=== PATIENT | male | born 1970 | race Caucasian/White ===

== ENCOUNTER 2023-05-21 08:31 | Inpatient (IN) | payer OTHER, SELFPAY ==
[2023-05-21] VITALS (81 sets, daily range): BP systolic 115–155; BP diastolic 65–105; PULSE 61–197; RESP 10–100; TEMP 36.5–37.1; O2SAT 90–100
--- NOTE | 2023-05-21 08:30 | RT.EKG_ITS ---
APPROVED REPORT Exam: Resting ECG Reason for Exam: Chest Pain Patient Location: E HR:192 bpm ECG Measurements Heart Rate 192 AXIS IA 118 P 75 QRSd 133 QRS -19 QT 292 T 153 QTc 523 Conclusion Wide-QRS tachycardia...V-rate>(220-age), QRSd>120 Left bundle branch block...QRSd>120, broad/notched R vtach
--- NOTE | 2023-05-21 08:45 | RT.EKG_ITS ---
APPROVED REPORT Exam: Resting ECG Reason for Exam: Chest Pain Patient Location: E HR:77 bpm ECG Measurements Heart Rate 77 AXIS W[place] 151 P 64 QRSd 93 QRS 70 QT 356 T 49 QTc 400 Conclusion Sinus rhythm...normal P axis, V-rate 60- 99 Atrial premature complex...SV complex w/ short R-R interval ST depr, consider ischemia, anterolateral lds...ST <-0.10mV, I aVL V2-V6
[2023-05-21 08:57] LABS: Abs Immature Grans 0.02 10^3/uL (0.0-0.06); Absolute Basophil Count 0.05 10^3/uL (0.0-0.2); Absolute Eosinophil Count 0.28 10^3/uL (0.0-0.7); Absolute Lymphocyte Count 2.32 10^3/uL (1.2-3.4); Absolute Neutrophil Count 5.02 10^3/uL (1.2-6.7); Basophils % 0.6; Eosinophils % 3.3; HCT 45.6 % (40.0-50.0); HGB 15.8 g/dL (13.5-17.5); Immature Grans % 0.2; MCH 33.6 pg (27.0-33.0); MCHC 34.6 % (32.0-36.0); MCV 97 fL (80-95); MPV 8.2 fL (8.0-11.0); Monocytes % 10.5; Neutrophils % 58.4; Platelet Count 362 10^3/uL (130-400); RDW-SD 46.4 fL; WBC 8.59 10^3/uL (4.4-10.8)
--- NOTE | 2023-05-21 09:08 | W.ED.GENAD ---
Discharge Plan Disposition Patient Disposition: Admit to [facility] Condition: Serious Discharge Details Chief Complaint: Chest Pain Clinical Impression: Supraventricular tachycardia, Elevated troponin Primary Care Provider: Unknown,Unknown ED Provider: Richie Quach Home Meds and New Rx's Prescriptions: No Action lisinopril 10 mg tablet 10 mg PO DAILY Medical Decision Making 958 --82-year-old male with history of hypertension, here with chest pressure and tachycardia. Patient tachycardic in the 190s, normotensive. EKG was reviewed and interpreted by me: Please report, wide-complex tachycardia concerning for SVT with aberrancy versus V. tach. No old EKG for comparison. Plan to initiate treatment with procainamide. Just prior to treatment with procainamide, patient had spontaneous resolution of arrhythmia. Repeat EKG reviewed and interpreted by me: Please see report. Patient now in sinus rhythm with ST depressions laterally concerning for ischemia. Initial labs reviewed and troponin normal. Plan to trend. Concern for arrhythmogenic cardiomyopathy. No neck cutter available here at [facility] today. I contacted [facility] [place] to request transfer. Awaiting callback from cardiology. EKGs were sent for review. 1035 --I spoke with the PA on-call at [facility] regarding transfer request. Discussed ED presentation course. EKGs were sent for review. Patient to be accepted by Dr. Diaz. No immediate bed availability and plan for bed availability tomorrow. She recommends starting aspirin, statin, metoprolol tartrate 12.5 mg twice daily and obtain echocardiogram if available. They do not recommend anticoagulation at this time. 1145 --delta troponin at [address] elevated[address] I spoke Dr[address] Abrams, on-call hospitalist, discussed ED presentation and course, he will admit the patient. Plan to touch base with [facility] cardiology regarding elevated troponin. Chest x-ray reviewed and interpreted by radiology: No acute pulmonary findings on this single AP portable view of the chest. 1159 --I spoke with on-call cardiology at [facility], provided update regarding troponin, they do recommend initiating heparin at this time with bolus and infusion. Lab Data Lab results reviewed: Yes I reviewed the patient's lab results. Labs: Laboratory Tests Range/Units 05/21/23 05/21/23 08:45 10:45 WBC (4.4-10.8) 10^3/uL 8.59 RBC (4.36-5.78) 10^6/uL 4.70 Hgb (13.5-17.5) g/dL 15.8 Hct (40.0-50.0) % 45.6 MCV (80-95) fL 97 H MCH (27.0-33.0) pg 33.6 H MCHC (32.0-36.0) % 34.6 RDW (11.8-14.1) % 13.0 Plt Count (130-400) 10^3/uL 362 MPV (8.0-11.0) fL 8.2 Immature Gran % 0.2 Neutrophils % 58.4 Lymphocytes % 27.0 Monocytes % 10.5 Eosinophils % 3.3 Basophils % 0.6 Nucleated RBC % (0.0-0.3) % 0.0 Absolute Neutrophils (1.2-6.7) 10^3/uL 5.02 Absolute Lymphocytes (1.2-3.4) 10^3/uL 2.32 Absolute Monocytes (0.1-0.8) 10^3/uL 0.90 H Absolute Eosinophils (0.0-0.7) 10^3/uL 0.28 Absolute Basophils (0.0-0.2) 10^3/uL 0.05 Sodium (136-145) mmol/L 141 Potassium (3.5-5.1) mmol/L 4.1 Chloride (98-107) mmol/L 104 Carbon Dioxide (21.0-32.0) mmol/L 26.9 Anion Gap (3-11) mmol/L 10.1 BUN (7-18) mg/dL 10 Creatinine (0.70-1.30) mg/dL 1.2 Est GFR (CKD-EPI 2020) (mL/min/1.73m2) 71.86 Glucose (74-106) mg/dL 110 H Calcium (8.5-10.1) mg/dL 9.1 Magnesium (1.8-2.4) mg/dL 2.3 Total Bilirubin (0.2-1.0) mg/dL 0.3 AST (15-37) U/L 24 ALT (16-63) U/L 47 Alkaline Phosphatase (46-116) U/L 97 Troponin I (<or=60) ng/L < 50 296 H* Total Protein (6.4-8.2) g/dL 7.8 Albumin (3.4-5.0) g/dL 3.8 TSH (0.36-3.74) uIU/mL 3.09 HPI General Mode of arrival: ambulatory. Date/Time Provider Initiated Documentation: 05/21/23 08:42. Limitations to Documentation: no limitations. Information obtained by: patient. HPI Narrative: 52-year-old male presents with chief complaint of chest pain. Pain described as a pressure that is been present for the past hour. Pain was sudden onset after playing with his dog. He had associated feeling of racing heart. Patient notes similar episodes that occur about 1-4 times per month and lasts approximately 5 minutes over the past 1 and half years. He has never had an episode this intense or long. No associated shortness of breath or leg swelling. No family history of sudden or known cardiomyopathy. Related Data Home Medications Medication Instructions Recorded Confirmed lisinopril 10 mg tablet 10 mg PO DAILY 05/21/23 05/21/23 Allergies Allergy/AdvReac Type Severity Reaction Status Date / Time No Known Allergies Allergy Unverified 05/21/23 08:50 General Stated Complaint: Chest Pain YOLI: 2 Review of Systems All systems reviewed & are unremarkable except as noted in HPI and below Constitutional Constitutional: Denies fever(s) Cardiovascular Cardiovascular: Reports as per HPI PFSH All Active Problems (Updated 05/21/23 @ 12:04 by Richie Quach MD) Elevated troponin (Acute) Supraventricular tachycardia (Chronic) Social History Smoking/Tobacco Use Status: Current every day Tobacco Type: cigarettes Smoking risk assessment performed?: Yes Alcohol Intake: current Alcohol Intake frequency: a few times a week Drug use: Never Substance use type: does not use Housing: house Do you feel safe at home: Yes Do you feel safe in your relationship?: Yes Exam Const General: cooperative and no acute distress HENMT Mouth: moist mucous membranes Eyes Conjunctivae: normal conjunctivae Sclera: normal sclerae Resp Auscultation: clear to auscultation bilaterally, no rales, no rhonchi and no wheezes Cardio Rate: tachycardic Rhythm: regular rhythm GI Palpation: soft, not firm, no guarding, no masses, not rigid and nontender Skin General skin exam: no rashes or lesions noted Neuro General: patient alert, patient awake, patient oriented x3 and tone normal Extrem General: no calf tenderness and no edema Psych Appearance: grossly normal Mental Status: mental status grossly normal Speech and Movement: speech and movement normal Course Vital Signs Vital signs: Vital Signs Temperature 36.9 C 05/21/23 08:35 Pulse 190 H 05/21/23 08:35 Respiratory Rate 18 05/21/23 08:35 Blood Pressure 124/65 05/21/23 08:35 Pulse Oximetry 100 05/21/23 08:35 Temperature 36.9 C 05/21/23 08:35 Pulse 185 H 05/21/23 08:37 Pulse 197 H 05/21/23 08:41 Respiratory Rate 15 05/21/23 08:41 Respiratory Effort Normal 05/21/23 08:40 Respiratory Depth Normal 05/21/23 08:40 Respiratory Pattern Normal 05/21/23 08:40 Blood Pressure 124/65 05/21/23 08:37 Blood Pressure Mean 80 05/21/23 08:37 Pulse Oximetry 100 05/21/23 08:35 Oxygen Delivery Method Room Air 05/21/23 08:35 Oxygen Flow Rate 0 05/21/23 08:35 Lab/Test Results Lab/Test Results: Laboratory Tests Range/Units 05/21/23 08:45 WBC (4.4-10.8) 10^3/uL 8.59 RBC (4.36-5.78) 10^6/uL 4.70 Hgb (13.5-17.5) g/dL 15.8 Hct (40.0-50.0) % 45.6 MCV (80-95) fL 97 H MCH (27.0-33.0) pg 33.6 H MCHC (32.0-36.0) % 34.6 RDW (11.8-14.1) % 13.0 Plt Count (130-400) 10^3/uL 362 MPV (8.0-11.0) fL 8.2 Immature Gran % 0.2 Neutrophils % 58.4 Lymphocytes % 27.0 Monocytes % 10.5 Eosinophils % 3.3 Basophils % 0.6 Nucleated RBC % (0.0-0.3) % 0.0 Absolute Neutrophils (1.2-6.7) 10^3/uL 5.02 Absolute Lymphocytes (1.2-3.4) 10^3/uL 2.32 Absolute Monocytes (0.1-0.8) 10^3/uL 0.90 H Absolute Eosinophils (0.0-0.7) 10^3/uL 0.28 Absolute Basophils (0.0-0.2) 10^3/uL 0.05 Critical Care Time Critical Care Time Critical Care Time: Yes Total Critical Care Time: 50 Attestation: I spent greater than 50 minutes addressing this patient's immediate life threats. Please see MDM section of note. This time was spent engaged in work directly related to the patient's care, exclusive of separate procedures, and failure to initiate these interventions would have likely resulted in clinically significant or life threatening deterioration in the patient's condition. PAWSS Have you Been Recently Intoxicated or Drunk Within the Last 30 days?: No Have you Ever Experienced Previous Episodes of Alcohol Withdrawal?: No Have you ever Experienced Withdrawal Seizures?: No Have you ever Experienced Delirium Tremens(DT)s?: No Have you ever undergone Alcohol Rehabilitation Treatment (i.e, inpt ot outpatient treatment programs)?: No Have you ever Experienced Blackouts?: No Have you ever Combined Alcohol with other Downers within the last 90 days?: No Have you ever Combined Alcohol with any other Substance of Abuse during the last 90 days?: No Positive Blood Alcohol level on Presentation? [PCS.BAL]: No Evidence of Increased Autonomic Activity (i.e. HR>120, tremor, sweating, agitation, nausea)?: No Result: 0
[2023-05-21 09:20] LABS: ALT 47 U/L (16-63); AST 24 U/L (15-37); Albumin 3.8 g/dL (3.4-5.0); Alkaline Phosphatase 97 U/L (46-116); Anion Gap 10.1 mmol/L (3-11); BUN 10 mg/dL (7-18); Bilirubin, Total 0.3 mg/dL (0.2-1.0); CO2 26.9 mmol/L (21.0-32.0); CREATININE 1.2 mg/dL (0.70-1.30); Calcium 9.1 mg/dL (8.5-10.1); Chloride 104 mmol/L (98-107); Estimated GFR 71.86 (mL/min/1.73m2); Glucose 110 mg/dL (74-106); Magnesium 2.3 mg/dL (1.8-2.4); Potassium 4.1 mmol/L (3.5-5.1); Sodium 141 mmol/L (136-145); TSH (W/Ref FT4) 3.09 uIU/mL (0.36-3.74); Total Protein 7.8 g/dL (6.4-8.2); Troponin I < 50 ng/L (<or=60)
--- NOTE | 2023-05-21 10:30 | DI.RAD_ITS ---
Exam(s) XR PORTABLE CHEST AP EXAM: XR PORTABLE CHEST AP CLINICAL HISTORY: chest pain. TECHNIQUE: 2D digital imaging was performed. COMPARISON: No exams were available for comparison FINDINGS: Single AP portable view. Chest pad in place. Heart size is upper normal. The mediastinum is not widened. Lungs are clear. No infiltrates nor obvious pleural effusions. IMPRESSION: No acute pulmonary findings on this single AP portable view of the chest. DATA REPOSITORY: RADIATION DOSE DELIVERED:
[2023-05-21] MEDS: Metoprolol 12.5 MG TAB PO ×3 (11:16→19:23)
[2023-05-21 11:21] LABS: Troponin I 296 ng/L (<or=60)
[2023-05-21 12:15] LABS: Source Nasal/Nares
[2023-05-21 12:55] LABS: COVID-19 PCR Negative (Negative)
[2023-05-21 12:59] LABS: PTT Activated 26.5 sec (23.6-32.8)
--- NOTE | 2023-05-21 13:16 | W.PC.ACHO ---
Registration Status: REG ER Primary Language: Preferred Language: ED Information & Data Chief Complaint Chest Pain 05/21/23 10:01 Triage Note pt having chest tightness 05/21/23 08:35 for last hour, -SOB, numbness in left arm Most Recent Vital Signs Temperature 36.9 C 05/21/23 08:35 Pulse 70 05/21/23 12:31 Pulse 71 05/21/23 12:40 Respiratory Rate 16 05/21/23 12:40 Respiratory Effort Normal 05/21/23 08:40 Respiratory Depth Normal 05/21/23 08:40 Respiratory Pattern Normal 05/21/23 08:40 Blood Pressure 137/70 05/21/23 12:31 Blood Pressure Mean 90 05/21/23 12:31 Pulse Oximetry 100 05/21/23 08:35 Oxygen Delivery Method Room Air 05/21/23 08:35 Oxygen Flow Rate 0 05/21/23 08:35 Allergies No Known Allergies Allergy (Unverified 05/21/23 08:50) Precautions Isolation Standard precaution 05/21/23 08:39 Active Medications Generic Name Dose Route Start Last Admin Trade Name Anthonyq PRN Reason Stop Dose Admin Heparin Sodium (Porcine) 25,000 units in 250 mls @ 10 mls/hr 05/21/23 12:00 05/21/23 12:29 IV 1,000 units/hr INFUSION MARIA 10 mls/hr Administration Protocol 1,000 UNITS/HR Metoprolol Tartrate 12.5 mg 05/21/23 20:00 05/21/23 11:16 Metoprolol 12.5 Mg Tab PO 12.5 mg BID MARIA Administration IV IV Catheter Type [Right Peripheral IV Antecubital] IV Catheter Type [Left Peripheral IV Antecubital] IV Catheter Gauge [Right 18 Antecubital] IV Catheter Gauge [Left 18 Antecubital] Diet Orders Category Date Time Status DIET [Nothing Per Oral] [DIET] Nutrition 05/21/23 Lunch Active Diagnostics 05/21/23 05/21/23 05/21/23 Range/Units 12:05 10:45 08:45 WBC 8.59 (4.4-10.8) 10^3/uL RBC 4.70 (4.36-5.78) 10^6/uL Hgb 15.8 (13.5-17.5) g/dL Hct 45.6 (40.0-50.0) % MCV 97 H (80-95) fL MCH 33.6 H (27.0-33.0) pg MCHC 34.6 (32.0-36.0) % RDW 13.0 (11.8-14.1) % Plt Count 362 (130-400) 10^3/uL MPV 8.2 (8.0-11.0) fL Immature Gran % 0.2 Neutrophils % 58.4 Lymphocytes % 27.0 Monocytes % 10.5 Eosinophils % 3.3 Basophils % 0.6 Nucleated RBC % 0.0 (0.0-0.3) % Absolute Neutrophils 5.02 (1.2-6.7) 10^3/uL Absolute Lymphocytes 2.32 (1.2-3.4) 10^3/uL Absolute Monocytes 0.90 H (0.1-0.8) 10^3/uL Absolute Eosinophils 0.28 (0.0-0.7) 10^3/uL Absolute Basophils 0.05 (0.0-0.2) 10^3/uL APTT 26.5 (23.6-32.8) sec Sodium 141 (136-145) mmol/L Potassium 4.1 (3.5-5.1) mmol/L Chloride 104 (98-107) mmol/L Carbon Dioxide 26.9 (21.0-32.0) mmol/L Anion Gap 10.1 (3-11) mmol/L BUN 10 (7-18) mg/dL Creatinine 1.2 (0.70-1.30) mg/dL Est GFR (CKD-EPI 2020) 71.86 (mL/min/1.73m2) Glucose 110 H (74-106) mg/dL Calcium 9.1 (8.5-10.1) mg/dL Magnesium 2.3 (1.8-2.4) mg/dL Total Bilirubin 0.3 (0.2-1.0) mg/dL AST 24 (15-37) U/L ALT 47 (16-63) U/L Alkaline Phosphatase 97 (46-116) U/L Troponin I 296 H* < 50 (<or=60) ng/L Total Protein 7.8 (6.4-8.2) g/dL Albumin 3.8 (3.4-5.0) g/dL TSH 3.09 (0.36-3.74) uIU/mL COVID-19 Source Nasal/Nares SARS-CoV-2 (PCR) Negative (Negative) Intake and Output - 24 Hour Total 05/21/23 08:31 thru 05/21/23 08:48 Intake Total 10 Balance 10 Weight 92.986 kg Intake: IV 10 Falls Risk Assessment History of Falls No History 05/21/23 08:41 Contributing Factors No Factors 05/21/23 08:41 Ambulatory Aids Independent 05/21/23 08:41 Tubes/Lines None 05/21/23 08:41 Gait Evaluation No gait disturbance 05/21/23 08:41 Cognition No cognitive impairment 05/21/23 08:41 Fall Total Score 0 05/21/23 08:41 Level of Risk Standard/Low Risk 05/21/23 08:41 Problems (Last Reviewed 05/21/23 @ 09:57 by Richie Quach MD) Elevated troponin (Acute) Supraventricular tachycardia (Chronic) v v v v v v v v v Sending and/or Receiving Nurses: Please use comment section below to note any information pertinent to the patient hand-off not included above. Information / Comments: med rec complete covid negative R AC #18 L AC #18 trops - <50, 296 independent, AAO x3 heparin gtt @ 10ml/hr PTT due at 1830, gtt started at 1230 chest pain on and off for a year; lasted 1 hour + today; HR 190's on admit - self converted to SR [place] [facility] until [place]22 Report received from: FARZANEH Quiles
--- NOTE | 2023-05-21 13:49 | W.PM.HP.N ---
Date of service: 05/21/23 Time of Service: 13:49 Assessment and Plan Assessment and plan (1) Wide-complex tachycardia: Status: Acute Assessment and plan: likely PSVT w/ aberrancy; begin metoprolol, will start on 12.5 mg qid (was ordered BID but d/t shorter half life should be given TID to QID). Start on ASA and statin; check glycohemoglobin A1c, and lipid profile, trend troponin I levels, if dramatic jump or if he has further symptoms then I will call [facility] [place] to try to expedite his transfer. continue heparin. I explained to patient that he will likely need heart cath and d/t his AI, he will need BEREKET. I am sure EP cardiology will perform more extensive workup once CAD has been ruled out. Critical care time spent interviewing and examining the patient, reviewing studies, discussing case with patient's nurse and consulting physicians was 60 minutes (2) Supraventricular tachycardia: Status: Suspected Assessment and plan: as above (3) Elevated troponin: Status: Acute Assessment and plan: type II demand NSTEMI (4) Essential hypertension: Status: Acute Assessment and plan: continue lisinopril History of Present Illness History of Present Illness Chief Complaint: chest tightness, palpitations Narrative: 52-year-old male smoker (one half to three-quarter pack per day x35 years) Essential hypertension controlled with lisinopril who presented to the emergency department with over 1 hour of symptoms of chest tightness and palpitations with a feeling of dyspnea. He states he has been having intermittent symptoms of palpitations with chest tightness, palpitations, and dyspnea that will last 5 to 10 minutes and this has occurred over a dozen times over the past year to year and half. He says that he has been to his PCP and he had been referred to a engineering program manager in [facility] who did an EKG and told him that he is fine. He has never had stress GXT nor any holter. Today his symptoms occurred abruptly without warning and not associated w/ any exertion. On arrival to the ED he was found to be in wide complex tachycardia at [address] Quach was preparing to begin Pronestyl when the patient converted to NSR on his own. Subsequent EGK demonstrated diffuse ST depression most prominent across the anterolateral precordial leads particularly in V3-V6 but also present in I and the inferior leads. Initial troponin I was normal at <50 but 2nd troponin done two hours later was elevated at 296. Dr. Quach called [facility] cardiology with the EKG's and the first troponin reading, they indicated that the patient would be accepted to [facility] cardiology, Dr. Diaz's service but due to bed capacity asked that he be admitted here. They advised beginning metoprolol, aspirin and statin but did not advise heparin but with the rising troponin I, patient has been started on heparin. Patient is currently in NSR and denies any CP or dyspnea. He understands that he will be transferred to [facility] when bed beccomes available. He had an echo done urgently here which I reviewed w/ him, he has normal LV and RV size and fxn but has moderate AI. He says that he had scarlet fever as a child but does not know of any rheumatic fever. Coronary risk factors include: age, smoker, HTN, +/- lipids, but no FH of premature heart disease (mother had atrial fibrillation). Normally he is very active, walks his dog couple miles a day and he works for [employer] at [place], [place] which involves a lot of walking and some climbing. he has no known hx of DM or sleep apnea, but does snore. Review of Systems All systems reviewed & are unremarkable except as noted in HPI and below PFSH All Active Problems (Updated 05/21/23 @ 14:57 by Dawood Abrams MD) Wide-complex tachycardia (Acute) Essential hypertension (Acute) Elevated troponin (Acute) Medical History (Updated 05/21/23 @ 14:57 by Dawood Abrams MD) Left forearm fracture required surgical repair of left forearm from tractor accident Social History Smoking/Tobacco Use Status: Current every day Tobacco Type: cigarettes Smoking risk assessment performed?: Yes Alcohol Intake: current Alcohol Intake frequency: a few times a week Drug use: Never Substance use type: does not use Housing: house Do you feel safe at home: Yes Do you feel safe in your relationship?: Yes Meds Allergies and Home Medications Allergies Allergy/AdvReac Type Severity Reaction Status Date / Time No Known Allergies Allergy Unverified 05/21/23 08:50 Home Medications Medication Instructions Recorded Confirmed Type lisinopril 10 mg tablet 10 mg PO DAILY 05/21/23 05/21/23 History Exam Narrative Exam Narrative: Alert and oriented x4 HEENT: Atraumatic normocephalic, pupils equally round reactive to light and accommodation, extraocular motion intact, oropharynx noninjected without exudate, teeth in good repair Neck: Supple, nontender, without thyromegaly or lymphadenopathy or JVD. Normal carotid pulses Lungs: Clear to auscultation and percussion Heart: Regular rate and rhythm without murmur rub or gallop. Normal apical impulse Abdomen: Nondistended, normal bowel sounds, nontender to palpation or percussion, no organomegaly, no bruits, no palpable masses Genitalia and rectal exam: Deferred Extremities: Normal range of motion with normal strength. No peripheral cyanosis or edema. Normal pulses Neurologic: Cranial nerves II through XII grossly within normal limits. Normal strength and sensation over the face trunk and extremities. Results Labs 05/21/23 08:45 05/21/23 08:45 Labs: Laboratory Results - last 24 hr 05/21/23 05/21/23 05/21/23 08:45 10:45 12:05 WBC 8.59 RBC 4.70 Hgb 15.8 Hct 45.6 MCV 97 H MCH 33.6 H MCHC 34.6 RDW 13.0 Plt Count 362 MPV 8.2 Immature Gran % 0.2 Neutrophils % 58.4 Lymphocytes % 27.0 Monocytes % 10.5 Eosinophils % 3.3 Basophils % 0.6 Nucleated RBC % 0.0 Absolute Neutrophils 5.02 Absolute Lymphocytes 2.32 Absolute Monocytes 0.90 H Absolute Eosinophils 0.28 Absolute Basophils 0.05 APTT 26.5 Sodium 141 Potassium 4.1 Chloride 104 Carbon Dioxide 26.9 Anion Gap 10.1 BUN 10 Creatinine 1.2 Est GFR (CKD-EPI 2020) 71.86 Glucose 110 H Calcium 9.1 Magnesium 2.3 Total Bilirubin 0.3 AST 24 ALT 47 Alkaline Phosphatase 97 Troponin I < 50 296 H* Total Protein 7.8 Albumin 3.8 TSH 3.09 COVID-19 Source Nasal/Nares SARS-CoV-2 (PCR) Negative Last Vital Signs Temp 36.9 C 05/21/23 08:35 Pulse 70 05/21/23 12:31 Resp 16 05/21/23 12:40 BP 137/70 05/21/23 12:31 Pulse Ox 100 05/21/23 08:35 PAWSS Have you Been Recently Intoxicated or Drunk Within the Last 30 days?: No Have you Ever Experienced Previous Episodes of Alcohol Withdrawal?: No Have you ever Experienced Withdrawal Seizures?: No Have you ever Experienced Delirium Tremens(DT)s?: No Have you ever undergone Alcohol Rehabilitation Treatment (i.e, inpt ot outpatient treatment programs)?: No Have you ever Experienced Blackouts?: No Have you ever Combined Alcohol with other Downers within the last 90 days?: No Have you ever Combined Alcohol with any other Substance of Abuse during the last 90 days?: No Positive Blood Alcohol level on Presentation? [PCS.BAL]: No Evidence of Increased Autonomic Activity (i.e. HR>120, tremor, sweating, agitation, nausea)?: No Result: 0 Time Spent Time spent with Patient: 55-74 minutes Time was spent: preparing to see the patient(eg.review tests), obtaining and/or reviewing separately otained hiistory, ordering medications,tests, procedures, referring, communicating with other health clinical care manager, indepentently interpreting results, counseling the patient and care coordination
[2023-05-21 14:34] LABS: Lab Add On Test DONE
[2023-05-21] MEDS: Aspirin 81 MG CHEW 324 MG CH (14:38)
[2023-05-21] MEDS: Normal Saline Flush 10 ML SYR IVP (14:40)
--- NOTE | 2023-05-21 14:45 | RT.EKG_ITS ---
APPROVED REPORT Exam: Resting ECG Reason for Exam: rising troponin I Patient Location: I HR:71 bpm ECG Measurements Heart Rate 71 AXIS NH 167 P 62 QRSd 96 QRS 62 QT 418 T 53 QTc 455 Conclusion Sinus rhythm...normal P axis, V-rate 50- 99 Normal Electrocardiogram
[2023-05-21 14:50] LABS: Hemoglobin A1C 5.8 % (<5.7)
[2023-05-21 14:51] LABS: Troponin I 666 ng/L (<or=60)
[2023-05-21 18:49] LABS: PTT Activated 33.6 sec (23.6-32.8)
[2023-05-21 18:53] LABS: Troponin I 794 ng/L (<or=60)
[2023-05-21] MEDS: Atorvastatin 40 MG TAB 80 MG PO (19:23)
[2023-05-22] VITALS (35 sets, daily range): BP systolic 107–143; BP diastolic 71–130; PULSE 59–96; RESP 10–25; TEMP 36.4–37.1; O2SAT 83–99
[2023-05-22 02:12] LABS: PTT Activated 53.1 sec (23.6-32.8)
[2023-05-22] MEDS: Heparin in 0.45% NaCl 25,000 UNIT/250 ML BAG 13.5 UNIT IV (02:41)
[2023-05-22 08:01] LABS: Calculated LDL 121 mg/dL (<100); Cholesterol 215 mg/dL (<200); HDL Cholesterol 51 mg/dL (40-60); Triglyceride 219 mg/dL (<150)
[2023-05-22 08:06] LABS: Troponin I 534 ng/L (<or=60)
[2023-05-22] MEDS: Metoprolol 12.5 MG TAB PO ×4 (08:35→19:51)
[2023-05-22] MEDS: Aspirin E.C. 81 MG TABEC PO (08:35)
[2023-05-22] MEDS: Lisinopril 10 MG TAB PO (08:35)
[2023-05-22 09:37] LABS: PTT Activated 45.9 sec (23.6-32.8)
--- NOTE | 2023-05-22 10:48 | W.PM.PROGNOT ---
Date of Service Date of service: 05/22/23 Time of Service: 10:48 Assessment and Plan Assessment and plan (1) Wide-complex tachycardia: Status: Acute Assessment and plan: likely PSVT w/ aberrancy; continue metoprolol, aspirin and heparin in light of his elevated troponins, However I still think this is demand ischemia. Awaiting transfer to [facility] to the service of Dr. Hanna for further evaluation. Professional time spent interviewing and examining patient, discussion of goals of care with hospital team (care management, nursing and consulting professionals) was 20 minutes. (2) Supraventricular tachycardia: Status: Suspected Assessment and plan: as above (3) Elevated troponin: Status: Acute Assessment and plan: type II demand NSTEMI continue aspirin metoprolol and atorvastatin (4) Essential hypertension: Status: Acute Assessment and plan: continue lisinopril Subjective Subjective Interval history since last seen: Patient's been asymptomatic since admission. No chest pain no dyspnea no palpitations. No arrhythmias overnight. Rhythm remains normal sinus rhythm. Metoprolol. We are awaiting transfer to [facility] cardiology Dr. Hanna service for evaluation of the patient's wide-complex tachycardia most likely PSVT. Transthoracic echocardiogram also demonstrated moderate aortic insufficiency and is evaluated with a BEREKET. L Exam Narrative Exam Narrative: Vern is alert oriented person place time circumstance no acute distress or discomfort whatsoever. Lungs clear to auscultation Heart is regular rate and rhythm there is a soft grade 2/6 diastolic murmur over the aortic outflow tract radiating down to the left lower sternal border. No thrill or heave Abdomen soft nontender Extremities no cyanosis Objective Last Vital Signs Temp 36.7 C 05/22/23 10:01 Pulse 72 05/22/23 10:01 Resp 16 05/22/23 10:01 BP 131/89 05/22/23 10:01 Pulse Ox 97 05/22/23 10:01 Laboratory Results - last 24 hr 05/21/23 05/21/23 05/21/23 08:45 10:45 12:05 APTT 26.5 Hemoglobin A1c Troponin I 296 H* Triglycerides Total Cholesterol LDL Cholesterol, Calc HDL Cholesterol COVID-19 Source Nasal/Nares SARS-CoV-2 (PCR) Negative Add-On Test Request 05/21/23 05/21/23 05/21/23 14:22 18:26 Unknown APTT 33.6 H Hemoglobin A1c 5.8 H Troponin I 666 H* 794 H* Triglycerides Total Cholesterol LDL Cholesterol, Calc HDL Cholesterol COVID-19 Source SARS-CoV-2 (PCR) Add-On Test Request DONE 05/22/23 05/22/23 05/22/23 01:46 06:55 09:15 APTT 53.1 H 45.9 H Hemoglobin A1c Troponin I 534 H* Triglycerides 219 H Total Cholesterol 215 H LDL Cholesterol, Calc 121 H HDL Cholesterol 51 COVID-19 Source SARS-CoV-2 (PCR) Add-On Test Request PAWSS Have you Been Recently Intoxicated or Drunk Within the Last 30 days?: No Have you Ever Experienced Previous Episodes of Alcohol Withdrawal?: No Have you ever Experienced Withdrawal Seizures?: No Have you ever Experienced Delirium Tremens(DT)s?: No Have you ever undergone Alcohol Rehabilitation Treatment (i.e, inpt ot outpatient treatment programs)?: No Have you ever Experienced Blackouts?: No Have you ever Combined Alcohol with other Downers within the last 90 days?: No Have you ever Combined Alcohol with any other Substance of Abuse during the last 90 days?: No Positive Blood Alcohol level on Presentation? [PCS.BAL]: No Evidence of Increased Autonomic Activity (i.e. HR>120, tremor, sweating, agitation, nausea)?: No Result: 0 Time Spent with Patient Time Spent with Patient: <25 minutes Time was spent: preparing to see the patient(eg.review tests), referring, communicating with other health point of care technician, indepentently interpreting results, counseling the patient and care coordination
--- NOTE | 2023-05-22 12:44 | W.PM.DS.N ---
Date of service: 05/22/23 Time of Service: 12:44 DS: Diagnosis Discharge Diagnosis (1) Wide-complex tachycardia: Status: Acute (2) Supraventricular tachycardia: Status: Suspected (3) Aortic regurgitation: Status: Acute (4) Elevated troponin: Status: Acute (5) Essential hypertension: Status: Acute (6) Hypercholesterolemia: Status: Acute (7) Tobacco abuse: Status: Acute Discharge Plan Disposition Patient Disposition: Transfer-Acute Inpatient Care Specific Acute Inpt Facility: [facility] Condition: Good Discharge Details Reason For Visit: wide complex tachycardia, elevated troponin I Admit Date/Time: 05/21/23 11:50 Admit Provider: Dawood Abrams Attending Provider: Dawood Abrams Primary Care Provider: Unknown,Unknown Hospital Course Hospital Course: 52-year-old male smoker with history of essential hypertension controlled with lisinopril presented emergency department with 1 hour of symptoms of chest tightness and palpitations with dyspnea. He was found to be in a wide-complex tachycardia at 192 bpm w/ LBBB pattern. Patient spontaneously converted to normal sinus rhythm without any medication intervention. Repeat ECG showed diffuse ST depression. Initial troponin was negative at less than 50 but second troponin millicent to 296. [facility] emergency room physician notified [facility] [place]ology who advised initiation of aspirin and heparin and initiation of metoprolol what was probably PSVT. Patient was conditionally accepted for transfer to [facility] to the service of Dr. Marcellus Hanna pending availability of a bed. Patient was admitted to the ICU where he remained hemodynamically stable and did not experience any further WCT nor any chest pain or dyspnea. Troponin I peaked at 794 before declining to 534 by the next day. Glycohemoglobin A1C was checked and found to be minimally elevated at 5.8%. Lipid profile was checked and found to be elevated w/ total cholesterol 215, LDL 121 and triglycerides 219. An echocardiogram was performed on admission which demonstrated normal LV and RV size and function w/ LVEF 55% and no regional wall motion abnormalities. However he was noted to have mild aortic regurgitation which was a new finding. Patient was begun on aspirin 81 mg daily after loading dose of 324 mg and he was treated w/ heparin drip but was not begun on Plavix. Atorvastatin was also begun. Patient was transferred to [facility] cardiology service of Dr. Marcellus Diaz in stable and improved condition. Home Meds and New Rx's Prescriptions: No Action lisinopril 10 mg tablet 10 mg PO DAILY Discharge Instructions Activity:: Activity as Tolerated Equipment/Supplies:: No Equipment Needed Diet:: Low Sodium Discharge Orders Discharge Orders: Discharge Order (Routine); Ordered 05/22/23 Ordered By: Jim Landry Discharge Data Discharge Date/Time-TO BE ENTERED AT DEPARTURE: 05/22/23 22:00 DS: Summary Time Spent with Patient providing and/or coordinating discharge services: Greater than 30 minutes Specific discharge activities: Interview/exam of patient, educating patient and/or family about need for transfer and alternative treatment options, coordination of transfer w/ receiving facility and discussion of case w/ accepting provider(s), completion of transfer orders and discharge summary Status at Discharge Functional status at discharge: independent ambulation Overall status at discharge: patient is back to baseline Mental Status: mental status grossly normal Speech and Movement: speech and movement normal Mood: congruent mood Affect: normal affect Exam Narrative Exam Narrative: Vern is alert oriented person place time circumstance no acute distress or discomfort whatsoever. Lungs clear to auscultation Heart is regular rate and rhythm there is a soft grade 2/6 diastolic murmur over the aortic outflow tract radiating down to the left lower sternal border. No thrill or heave Abdomen soft nontender Extremities no cyanosis Psych Mental Status: mental status grossly normal Speech and Movement: speech and movement normal Mood: congruent mood Affect: normal affect DS: Data Vitals/I&O Vitals and I&O: Vital Signs Temperature 36.6 C 05/22/23 12:01 Temperature Source Temporal Artery Scan 05/22/23 08:02 Pulse 74 05/22/23 12:01 Pulse 75 05/22/23 12:01 Respiratory Rate 10 L 05/22/23 12:01 Respiratory Effort Normal 05/22/23 08:02 Respiratory Depth Normal 05/22/23 08:02 Respiratory Pattern Normal 05/22/23 08:02 Blood Pressure 134/79 05/22/23 12:01 Blood Pressure Mean 95 05/22/23 12:01 Blood Pressure Position Supine 05/22/23 08:02 Pulse Oximetry 97 05/22/23 12:01 Oxygen Delivery Method Room Air 05/22/23 08:02 Oxygen Flow Rate 0 05/22/23 08:02 Pain Level 0 05/22/23 05:46 Intake & Output 05/21/23 05/22/23 05/22/23 23:59 11:59 23:59 Intake Total 140.334 / 150.334 730.167 / 1030.167 300 / 1030.167 Output Total 750 / 750 Balance 140.334 / 150.334 -19.833 / 280.167 300 / 280.167 Weight 88.4 kg Intake: IV 140.334 / 150.334 80.167 / 80.167 Oral 650 / 950 300 / 950 Output: Urine 750 / 750 Other: Urine Color Yellow Urine Appearance Clear Urine Odor Normal Voiding Methods Urinal Data Completed and Pending Labs on day of discharge: Labs from last 24 hours 05/22/23 05/22/23 05/22/23 09:15 06:55 01:46 APTT 45.9 H 53.1 H Hemoglobin A1c Troponin I 534 H* Triglycerides 219 H Total Cholesterol 215 H LDL Cholesterol, Calc 121 H HDL Cholesterol 51 SARS-CoV-2 (PCR) Add-On Test Request 05/21/23 05/21/23 05/21/23 Unknown 18:26 14:22 APTT 33.6 H Hemoglobin A1c 5.8 H Troponin I 794 H* 666 H* Triglycerides Total Cholesterol LDL Cholesterol, Calc HDL Cholesterol SARS-CoV-2 (PCR) Add-On Test Request DONE 05/21/23 05/21/23 12:05 08:45 APTT 26.5 Hemoglobin A1c Troponin I Triglycerides Total Cholesterol LDL Cholesterol, Calc HDL Cholesterol SARS-CoV-2 (PCR) Negative Add-On Test Request [facility] All Active Problems (Updated 05/23/23 @ 00:04 by TY GARCIA) Tobacco abuse (Acute) Hypercholesterolemia (Acute) Aortic regurgitation (Acute) Wide-complex tachycardia (Acute) Essential hypertension (Acute) Elevated troponin (Acute) Medical History Left forearm fracture required surgical repair of left forearm from tractor accident Social History Smoking/Tobacco Use Status: Current every day Tobacco Type: cigarettes Smoking risk assessment performed?: Yes Alcohol Intake: current Alcohol Intake frequency: a few times a week Drug use: Never Substance use type: does not use Housing: house Do you feel safe at home: Yes Do you feel safe in your relationship?: Yes Time Spent with Patient Time Spent with Patient: <45 minutes Time was spent: preparing to see the patient(eg.review tests), referring, communicating with other health out of school hours care worker, indepentently interpreting results, counseling the patient and care coordination
[2023-05-22] MEDS: Heparin in 0.45% NaCl 25,000 UNIT/250 ML BAG 15.5 UNIT IV ×2 (14:21→18:55)
--- NOTE | 2023-05-22 14:47 | CHAPLAIN ---
Vern was sitting up in bed when I visited. He's waiting to be trandfered [place] [facility] [place] more tests. He said his will likely travel there to visit him, once the tests are complete and they have an idea of what's going on. I explained my role and offered support.
[2023-05-22] MEDS: Atorvastatin 40 MG TAB 80 MG PO (19:51)
[2023-05-22 20:48] LABS: PTT Activated 57.4 sec (23.6-32.8)
--- NOTE | 2023-05-23 00:01 | DSE_ITS ---
Date of service: 05/22/23 Time of Service: 22:00 DS: Diagnosis Discharge Diagnosis (1) Wide-complex tachycardia: Status: Acute (2) Supraventricular tachycardia: Status: Suspected (3) Aortic regurgitation: Status: Acute (4) Elevated troponin: Status: Acute (5) Essential hypertension: Status: Acute (6) Hypercholesterolemia: Status: Acute (7) Tobacco abuse: Status: Acute Discharge Plan Disposition Patient Disposition: Transfer-Acute Inpatient Care Specific Acute Inpt Facility: [facility] Condition: Good Discharge Details Reason For Visit: wide complex tachycardia, elevated troponin I Admit Date/Time: 05/21/23 11:50 Admit Provider: Dawood Abrams Attending Provider: Dawood Abrams Primary Care Provider: Unknown,Unknown Hospital Course Hospital Course: 52-year-old male smoker with history of essential hypertension controlled with lisinopril presented emergency department with 1 hour of symptoms of chest tightness and palpitations with dyspnea. He was found to be in a wide-complex tachycardia at 192 bpm w/ LBBB pattern. Patient spontaneously converted to normal sinus rhythm without any medication intervention. Repeat ECG showed diffuse ST depression. Initial troponin was negative at less than 50 but second troponin millicent to 296. [facility] emergency room physician notified [facility] cardiology who advised initiation of aspirin and heparin and initiation of metoprolol what was probably PSVT. Patient was conditionally accepted for transfer to [facility] to the service of Dr. Marcellus Hanna pending availability of a bed. Patient was admitted to the ICU where he remained hemodynamically stable and did not experience any further WCT nor any chest pain or dyspnea. Troponin I peaked at 794 before declining to 534 by the next day. Glycohemoglobin A1C was checked and found to be minimally elevated at 5.8%. Lipid profile was checked and found to be elevated w/ total cholesterol 215, LDL 121 and triglycerides 219. An echocardiogram was performed on admission which demonstrated normal LV and RV size and function w/ LVEF 55% and no regional wall motion abnormalities. However he was noted to have mild aortic regurgitation which was a new finding. Patient was begun on aspirin 81 mg daily after loading dose of 324 mg and he was treated w/ heparin drip but was not begun on Plavix. Atorvastatin was also begun. Patient was transferred to [facility] cardiology service of Dr. Marcellus Diaz in stable and improved condition. Home Meds and New Rx's Prescriptions: No Action lisinopril 10 mg tablet 10 mg PO DAILY Discharge Instructions Activity:: Activity as Tolerated Equipment/Supplies:: No Equipment Needed Diet:: Low Sodium Discharge Orders Discharge Orders: Discharge Order (Routine); Ordered 05/22/23 Ordered By: Jim Landry Discharge Data Discharge Date/Time-TO BE ENTERED AT DEPARTURE: 05/22/23 22:00 DS: Summary Time Spent with Patient providing and/or coordinating discharge services: Greater than 30 minutes Status at Discharge Functional status at discharge: independent ambulation Overall status at discharge: patient is progressing back to baseline Mental Status: mental status grossly normal Speech and Movement: speech and movement normal Mood: congruent mood Affect: normal affect Exam Psych Mental Status: mental status grossly normal Speech and Movement: speech and movement normal Mood: congruent mood Affect: normal affect DS: Data Vitals/I&O Vitals and I&O: Vital Signs Temperature 37 C 05/22/23 19:55 Temperature Source Temporal Artery Scan 05/22/23 19:55 Pulse 74 05/22/23 21:01 Pulse 75 05/22/23 21:01 Respiratory Rate 20 05/22/23 21:01 Respiratory Effort Normal 05/22/23 19:55 Respiratory Depth Normal 05/22/23 19:55 Respiratory Pattern Normal 05/22/23 19:55 Blood Pressure 115/78 05/22/23 21:01 Blood Pressure Mean 90 05/22/23 21:01 Blood Pressure Position Sitting 05/22/23 19:55 Pulse Oximetry 93 05/22/23 21:01 Oxygen Delivery Method Room Air 05/22/23 19:55 Oxygen Flow Rate 0 05/22/23 19:55 Pain Level 0 05/22/23 22:10 Intake & Output 05/22/23 05/22/23 05/23/23 11:59 23:59 11:59 Intake Total 730.167 / 2639.450 1909.283 / 2639.450 Output Total 750 / 3200 2450 / 3200 Balance -19.833 / -560.550 -540.717 / -560.550 Intake: IV 80.167 / 339.450 259.283 / 339.450 Oral 650 / 2300 1650 / 2300 Output: Urine 750 / 3200 2450 / 3200 Other: Urine Color Yellow Yellow Urine Appearance Clear Clear Urine Odor Normal Normal Comment uses urinal Stool Size Large Stool Characteristics Soft Voiding Methods Urinal Urinal Data Completed and Pending Labs on day of discharge: Labs from last 24 hours 05/22/23 05/22/23 05/22/23 20:25 09:15 06:55 APTT 57.4 H 45.9 H Troponin I 534 H* Triglycerides 219 H Total Cholesterol 215 H LDL Cholesterol, Calc 121 H HDL Cholesterol 51 05/22/23 01:46 APTT 53.1 H Troponin I Triglycerides Total Cholesterol LDL Cholesterol, Calc HDL Cholesterol PFSH All Active Problems (Updated 05/23/23 @ 00:04 by TY GARCIA) Tobacco abuse (Acute) Hypercholesterolemia (Acute) Aortic regurgitation (Acute) Wide-complex tachycardia (Acute) Essential hypertension (Acute) Elevated troponin (Acute) Medical History Left forearm fracture required surgical repair of left forearm from tractor accident Social History Smoking/Tobacco Use Status: Current every day Tobacco Type: cigarettes Smoking risk assessment performed?: Yes Alcohol Intake: current Alcohol Intake frequency: a few times a week Drug use: Never Substance use type: does not use Housing: house Do you feel safe at home: Yes Do you feel safe in your relationship?: Yes Time Spent with Patient Time Spent with Patient: 45-69 minutes Time was spent: preparing to see the patient(eg.review tests), obtaining and/or reviewing separately otained hiistory, ordering medications,tests, procedures, referring, communicating with other health manager urgent care, indepentently interpreting results and care coordination
== END 2023-05-22 22:00 | disposition short-term general hospital (02) | DRG 282 ==
LOC: ER 12:04 → ICU 13:22
PROVIDERS: Family Medicine; Physician Assistant; Admitting Provider Internal Medicine; Emergency Provider Student in an Organized Health Care Education/Training Program; Visit Provider Internal Medicine
DX: I47.10 Supraventricular tachycardia, unspecified (principal); I21.A1 Myocardial infarction type 2; I35.1 Nonrheumatic aortic (valve) insufficiency; I10 Essential (primary) hypertension; E78.00 Pure hypercholesterolemia, unspecified; R74.8 Abnormal levels of other serum enzymes; R07.89 Other chest pain; F17.210 Nicotine dependence, cigarettes, uncomplicated; I44.7 Left bundle-branch block, unspecified; R01.1 Cardiac murmur, unspecified
CPT/HCPCS: 00123; 36415; 80053; 80061; 87635; 93005; 96365; 96366; 96367; 99291; 71045; 83036; 83735; 84443; 84484; 85025; 85730; 93010; 93306; 99231; 99239; J3490

== ENCOUNTER 2023-09-03 09:36 | Outpatient (CLI) | payer OTHER, SELFPAY ==
--- NOTE | 2023-09-03 09:30 | RT.EKG_ITS ---
APPROVED REPORT Exam: Resting ECG Reason for Exam: SVT Patient Location: O HR:82 bpm ECG Measurements Heart Rate 82 AXIS WY 158 P 74 QRSd 101 QRS 67 QT 381 T 48 QTc 445 Conclusion Sinus rhythm...normal P axis, V-rate 50- 99 I have reviewed and interpreted ECG and agree with software generated interpretation.
== END 2023-09-03 09:37 | disposition home or self-care (01) ==
LOC: DI.CARD 09:37
PROVIDERS: PCP Family Medicine; Visit Provider Internal Medicine Cardiovascular Disease
DX: I47.10 Supraventricular tachycardia, unspecified (principal)
CPT/HCPCS: 93010

== ENCOUNTER 2024-06-22 09:43 | Emergency (ER) | payer OTHER, SELFPAY ==
[2024-06-22] VITALS (19 sets, daily range): BP systolic 89–154; BP diastolic 61–95; PULSE 83–212; RESP 8–22; TEMP 37; O2SAT 96–99
--- NOTE | 2024-06-22 09:45 | RT.EKG_ITS ---
APPROVED REPORT Exam: Resting ECG Reason for Exam: Tachycardia Patient Location: E HR:174 bpm ECG Measurements Heart Rate 174 AXIS IN 64 P 0 QRSd 82 QRS 75 QT 274 T -62 QTc 467 Conclusion WVT 174
[2024-06-22] MEDS: Adenosine 6 MG/2 ML VIAL IVP ×2 (10:00)
--- NOTE | 2024-06-22 10:00 | ED.GENADUL_ITS ---
Discharge Plan Disposition Patient Disposition: Home Condition: Stable Discharge Details Clinical Impression: SVT (supraventricular tachycardia) Primary Care Provider: [facility] ED Provider: Cody Leigh Home Meds and New Rx's Prescriptions: No Action aspirin [Adult Aspirin Regimen] 81 mg tablet,delayed release (DR/EC) 81 mg PO DAILY metoprolol succinate 25 mg tablet extended release 24 hr 25 mg PO DAILY atorvastatin 40 mg tablet 40 mg PO DAILY albuterol sulfate 90 mcg/actuation HFA aerosol inhaler 2 inh inhalation Q6H PRN lisinopril 10 mg tablet 10 mg PO DAILY Discharge Instructions Instructions: Supraventricular tachycardia (SVT) Additional Instructions: * continue medications as prescribed * keep a log of your blood pressure. you may be able to increase your metoprolol dose if BP is stable. your PCP or vp legal affairs can adjust this HPI General Date/Time Provider Initiated Documentation: 06/22/24 09:54 . Limitations to Documentation: no limitations . Information obtained by: patient . HPI Narrative: 53-year-old gentleman with past medical history of SVT, hypertension presents for evaluation of elevated heart rate. He reports that his heart rate felt elevated this morning and he used his [employer] monitor which read that his heart rate was almost 200. He reports that he otherwise felt fine. He states that he has had this many times before. He has previously had an ablation. He states that he did take his metoprolol this morning as well as his baby aspirin. He denies any chest pain or shortness of breath. Related Data Home Medications ?Medication ?Instructions ?Recorded ?Confirmed lisinopril 10 mg tablet 10 mg PO DAILY 05/21/23 06/22/24 albuterol sulfate 90 mcg/actuation 2 inh inhalation Q6H PRN 06/12/23 06/22/24 aerosol inhaler aspirin 81 mg tablet,delayed 81 mg PO DAILY 06/12/23 06/22/24 release (Adult Aspirin Regimen) atorvastatin 40 mg tablet 40 mg PO DAILY 06/12/23 06/22/24 metoprolol succinate 25 mg 25 mg PO DAILY 06/12/23 06/22/24 tablet,extended release 24 hr Allergies Allergy/AdvReac Type Severity Reaction Status Date / Time No Known Allergies Allergy Verified 06/22/24 09:56 General Stated Complaint: Palpitatns YOLI: 2 Exam Narrative Exam Narrative: Review of Systems: All systems reviewed & are unremarkable except as noted in HPI and below Well-developed, no acute distress NCAT Tachycardic, normal blood pressure Unlabored respiratory effort clear bilaterally no hypoxia Nondistended abdomen Extremities w/o edema no focal neurologic deficits Course Vital Signs Vital signs: Vital Signs Temperature 37.0 C 06/22/24 09:47 Pulse 212 H 06/22/24 09:47 Respiratory Rate 20 06/22/24 09:47 Blood Pressure 154/69 H 06/22/24 09:47 Pulse Oximetry 99 06/22/24 09:47 Temperature 37.0 C 06/22/24 09:47 Pulse 212 H 06/22/24 09:47 Respiratory Rate 20 06/22/24 09:47 Respiratory Effort Normal 06/22/24 09:53 Blood Pressure 154/69 H 06/22/24 09:47 Pulse Oximetry 99 06/22/24 09:47 Pain Level 0 06/22/24 09:47 Medical Decision Making Emergent evaluation of tacky dysrhythmia. Patient does have a history of SVT. He reports several prior cardioversions as well as an ablation. He reports that cardiology told him that he needs a second ablation but he has not been able to have this scheduled yet. He did take his metoprolol this morning. Initial EKG reveals supraventricular tachycardia at a rate of 174. Nonspecific ST segment changes likely secondary to rate. 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 Given his normal blood pressure, chemical cardioversion for this patient's tacky dysrhythmia is appropriate. He was given 6 mg of IV adenosine without change in rate. He was then given 12 mg of adenosine which resulted in resolution of his SVT and returned to sinus rhythm. Repeat EKG reviewed and independently interpreted: Sinus tachycardia 111, no acute ischemic changes. Given the patient's history of this, do not feel additional emergent workup or blood work is indicated. Will monitor to make sure the patient does not return to abnormal heart rhythm. Patient had no recurrence of abnormal heart rhythm and maintained a sinus rhythm. Recommend a blood pressure log so that he can follow-up with his PCP as he may need it at the increased dose of the metoprolol if he continues to have dysrhythmia symptoms. Return precautions advised. Follow-up as needed. Quality:SDOH Health Related Social Needs: No Data to Display PFSH All Active Problems (Updated 06/22/24 @ 10:54 by Cody Leigh MD) SVT (supraventricular tachycardia) (Chronic) Diabetes mellitus, type II (Acute) Tobacco abuse (Acute) Hypercholesterolemia (Acute) Aortic regurgitation (Acute) Wide-complex tachycardia (Acute) Essential hypertension (Acute) Elevated troponin (Acute) Medical History Left forearm fracture required surgical repair of left forearm from tractor accident Social History Smoking/Tobacco Use Status: Former Tobacco Use Smoking risk assessment performed?: Yes Alcohol Intake: current Alcohol Intake frequency: a few times a week Drug use: Never Substance use type: does not use Housing: house Do you feel safe at home: Yes Do you feel safe in your relationship?: Yes
[2024-06-22] MEDS: Adenosine 6 MG/2 ML VIAL 12 MG IVP (10:10)
[2024-06-22] MEDS: Metoprolol CR 25 MG TABCR PO (10:39)
== END 2024-06-22 11:06 | disposition home or self-care (01) ==
LOC: ER 11:08
PROVIDERS: Emergency Provider Emergency Medicine; PCP Family Medicine
DX: I47.10 Supraventricular tachycardia, unspecified (principal)
CPT/HCPCS: 36415; 93005; 96374; 99284; 93010; J0153

== ENCOUNTER 2024-07-21 11:54 | Emergency (ER) | payer OTHER, SELFPAY ==
[2024-07-21] VITALS (22 sets, daily range): BP systolic 100–155; BP diastolic 63–89; PULSE 76–193; RESP 12–26; O2SAT 95–99
--- NOTE | 2024-07-21 11:45 | RT.EKG_ITS ---
APPROVED REPORT Exam: Resting ECG Reason for Exam: svt, low bp Patient Location: E HR:188 bpm ECG Measurements Heart Rate 188 AXIS IN [id number] P 0 QRSd 138 QRS -29 QT 300 T 145 QTc 530 Conclusion Wide-QRS tachycardia, rate 188 V-tach vs. SVT with aberrancy Similar morphology compared to 05/21/2023 EKG
--- NOTE | 2024-07-21 12:00 | RT.EKG_ITS ---
APPROVED REPORT Exam: Resting ECG Reason for Exam: svt Patient Location: E HR:88 bpm ECG Measurements Heart Rate 88 AXIS ND 166 P 70 QRSd 98 QRS 73 QT 359 T 41 QTc 434 Conclusion Sinus rhythm, rate 88 No interval abnormalities No STEMI Compared to priors, wide complex tachycardia has resolved
--- NOTE | 2024-07-21 12:13 | ED.GENADUL_ITS ---
Discharge Plan Disposition Patient Disposition: Home Discharge Details Clinical Impression: Wide-complex tachycardia, Essential hypertension, Hypercholesterolemia, Diabetes mellitus, type II, Transaminitis Primary Care Provider: [facility] ED Provider: Linn Kwon Home Meds and New Rx's Prescriptions: No Action aspirin [Adult Aspirin Regimen] 81 mg tablet,delayed release (DR/EC) 81 mg PO DAILY metoprolol succinate 25 mg tablet extended release 24 hr 25 mg PO DAILY atorvastatin 40 mg tablet 40 mg PO DAILY lisinopril 10 mg tablet 10 mg PO DAILY Discharge Instructions Instructions: Supraventricular tachycardia (SVT) Additional Instructions: You were seen in the emergency department today for evaluation of tachycardia, and had vagal maneuvers performed that successfully converted you back into a sinus rhythm. Your laboratory studies were reassuring, though we did note a small elevation in your liver enzymes that we will need to be rechecked by your primary care provider at your next visit. It is a for you to go home and continue all of your medications as prescribed, and please schedule a follow-up appointment with your propellant assembler to discuss this visit and next steps in management of your tachycardia. Thank you for allowing us to be part of your care. Discharge Data Discharge Date/Time-TO BE ENTERED AT DEPARTURE: 07/21/24 13:45 HPI General Mode of arrival: ambulatory . Date/Time Provider Initiated Documentation: 07/21/24 11:55 . Limitations to Documentation: no limitations . Information obtained by: patient, family and old records reviewed . HPI Narrative: HPI: This is a 53-year-old male patient with a past medical history significant for SVT, hypertension, diabetes, presenting for evaluation of SVT. The patient reports that he has had frequent episodes of SVT, is followed by cardiology at [facility]. He states that these episodes started back in 2022, he underwent ablation that was unfortunately unsuccessful, and has not yet been able to sched ule a repeat procedure. He takes metoprolol, 25 mg extended release daily, states that this morning he took another half of a pill when he felt himself go into SVT. He was at rest when this occurred, approximately 1 hour prior to arrival. He states that it is associated with a racing sensation and a bubble sensation of discomfort in the center of his chest. He has no associated nausea, vomiting, shortness of breath, and states that he has not had any recent changes in his health or medications. He does not consume an excessive amount of caffeine, states that he quit smoking after this condition occurred, and has otherwise been in his normal state of health. The patient was prompted to seek care today because he noted that his blood pressure went low in the outpatient environment, to 90 systolic. He states that he is getting these episodes approximately weekly. Exam: Gen: Awake and alert, in no apparent distress HEENT: Non-icteric sclera Neck: Supple Lungs: No apparent respiratory distress, normal respiratory effort. CV: Appears well perfused, heart with tachycardic rate, thready pulses, regular rhythm Abdomen: Non-distended MSK: Moves 4 extremities without apparent limitation in ROM. No calf swelling or peripheral edema Skin: Visualized skin without rashes, cyanosis. Neuro: Normal Gait, no obvious focal deficits or facial asymmetry. Speaks in full, clear sentences. Psych: Appropriate for situation. MDM: This is a 53-year-old male patient presenting for evaluation of SVT. My differential includes but is not limited to arrhythmia including his baseline SVT, no history of WPW, no history of atrial fibrillation and the regular rate is less consistent with this dysrhythmia. Considered ventricular dysrhythmias including ventricular tachycardia. I considered metabolic and electrolyte derangements, dehydration, medication effect. Considered hyperthyroidism. Reassuringly, the patient's blood pressure is stable, and we obtained an EKG which showed a wide-complex tachycardia, with a rate of 188. We attempted vagal maneuvers x 1, with successful conversion to normal sinus rhythm. Blood pressure maintained normal throughout this procedure and afterwards, and the patient had a complete resolution of his chest pain. We will obtain laboratory studies to include CBC, CMP, magnesium, TSH. Though there is evidence to suggest that troponins do not need to be obtained in the setting of a tachydysrhythmia exacerbation, given that this patient has had a wide-complex rhythm concerning for ventricular tachycardia, and has had recent EKGs showing a narrow complex SVT, it is reasonable to rule out ACS with troponin at this time. ED Course: I independently interpreted the laboratory studies, which show no significant leukocytosis, anemia, or thrombocytopenia. The chemistry panel is without evidence of electrolyte abnormality, kidney dysfunction. Mild transaminitis appreciated, new for this patient compared to priors, for which she will need to have outpatient laboratory studies performed by his PCP at his next visit. Initial troponin was not elevated, and 1 hour delta is without significant change, making cardiac ischemia highly unlikely. I monitored the patient on telemetry and he remained in the sinus rhythm and remained asymptomatic with normal vital signs. He is desiring of discharge home and will follow-up with his propellant assembler, which I feel is very reasonable course of action. At this time, the patient has had a full medical evaluation and is safe for discharge to home. They are hemodynamically stable, ambulatory, and tolerating PO. They are understanding of the follow-up plan and return precautions. They left our facility without incident. Linn Kwon MD Related Data Home Medications ?Medication ?Instructions ?Recorded ?Confirmed lisinopril 10 mg tablet 10 mg PO DAILY 05/21/23 07/21/24 aspirin 81 mg tablet,delayed 81 mg PO DAILY 06/12/23 07/21/24 release (Adult Aspirin Regimen) atorvastatin 40 mg tablet 40 mg PO DAILY 06/12/23 07/21/24 metoprolol succinate 25 mg 25 mg PO DAILY 06/12/23 07/21/24 tablet,extended release 24 hr Allergies Allergy/AdvReac Type Severity Reaction Status Date / Time No Known Allergies Allergy Verified 07/21/24 12:00 General Stated Complaint: Chest Pain YOLI: 2 Course Vital Signs Vital signs: Vital Signs Pulse 191 H 07/21/24 11:57 Respiratory Rate 26 H 07/21/24 11:57 Blood Pressure 155/89 H 07/21/24 11:57 Pulse Oximetry 99 07/21/24 11:57 Pulse 96 H 07/21/24 12:05 Pulse 99 H 07/21/24 12:05 Respiratory Rate 15 07/21/24 12:05 Respiratory Effort Normal, Non-Labored 07/21/24 12:01 Respiratory Depth Normal 07/21/24 12:01 Respiratory Pattern Normal 07/21/24 12:01 Blood Pressure 113/75 07/21/24 12:05 Blood Pressure Mean 88 07/21/24 12:05 Blood Pressure Position Sitting 07/21/24 11:57 Pulse Oximetry 98 07/21/24 12:05 Oxygen Delivery Method Room Air 07/21/24 11:57 Oxygen Flow Rate 0 07/21/24 11:57 Pain Level 2 07/21/24 12:01 Medical Decision Making Quality:SDOH Health Related Social Needs: No Data to Display PFSH All Active Problems (Updated 07/21/24 @ 13:39 by Linn Kwon MD) Transaminitis (Acute) SVT (supraventricular tachycardia) (Chronic) Diabetes mellitus, type II (Acute) Tobacco abuse (Acute) Hypercholesterolemia (Acute) Aortic regurgitation (Acute) Wide-complex tachycardia (Acute) Essential hypertension (Acute) Elevated troponin (Acute) Medical History Left forearm fracture required surgical repair of left forearm from tractor accident Social History Smoking/Tobacco Use Status: Former Tobacco Use Smoking risk assessment performed?: Yes Alcohol Intake: current Alcohol Intake frequency: a few times a week Drug use: Never Substance use type: does not use Housing: house Do you feel safe at home: Yes Do you feel safe in your relationship?: Yes
--- NOTE | 2024-07-21 12:14 | NUR.NOTE ---
Nursing Note:Pt arrived in SVT 200s, Dr. Kwon to bedside. Vagal maneuvers successful with return to NSR 90s. EKGs done pre and post intervention. Pt denies chest pain.
[2024-07-21 12:32] LABS: HCT 44.4 % (40.0-50.0); MCH 31.6 pg (27.0-33.0); MCHC 33.8 % (32.0-36.0); MCV 94 fL (80-95); MPV 8.4 fL (8.0-11.0); Neutrophils % 52.1 %; Platelet Count 272 10^3/uL (130-400); RBC 4.75 10^6/uL (4.36-5.78); RDW 12.7 % (11.8-14.1); WBC 5.43 10^3/uL (4.4-10.8)
[2024-07-21 12:33] LABS: Absolute Basophil Count 0.03 10^3/uL (0.0-0.2); Absolute Eosinophil Count 0.02 10^3/uL (0.0-0.7); Absolute Lymphocyte Count 1.55 10^3/uL (1.2-3.4); Absolute Monocyte Count 0.99 10^3/uL (0.1-0.8); Absolute Neutrophil Count 2.83 10^3/uL (1.2-6.7); Basophils % 0.6 %; Eosinophils % 0.4 %; Immature Grans % 0.2 %; Lymphocytes % 28.5 %; Monocytes % 18.2 %
[2024-07-21 12:34] LABS: Diff Comment Diff Reviewed; RBC Morphology Normal
--- NOTE | 2024-07-21 12:39 | NUR.NOTE ---
Nursing Note: First round of labs drawn with IV start hemolyzed per lab, redrawn by Tracey MOY
[2024-07-21 13:18] LABS: Albumin 3.6 g/dL (3.4-5.0); Alkaline Phosphatase 80 U/L (46-116); BUN 12 mg/dL (7-18); Bilirubin, Total 0.44 mg/dL (0.2-1.0); CREATININE 1.4 mg/dL (0.70-1.30); Estimated GFR 59.36 (mL/min/1.73m2); Glucose 102 mg/dL (74-106); Sodium 137 mmol/L (136-145); Total Protein 7.6 g/dL (6.4-8.2); Troponin I 26 ng/L (<or=76)
[2024-07-21 13:19] LABS: ALT 78 U/L (16-63); AST 55 U/L (15-37); Anion Gap 11.2 mmol/L (3-11); CO2 25.8 mmol/L (21.0-32.0); Chloride 100 mmol/L (98-107); Magnesium 1.8 mg/dL (1.8-2.4); TSH (W/Ref FT4) 2.63 uIU/mL (0.36-3.74)
[2024-07-21 13:57] LABS: Troponin I 33 ng/L (<or=76)
== END 2024-07-21 13:45 | disposition home or self-care (01) ==
LOC: ER 13:48
PROVIDERS: Emergency Provider Emergency Medicine; PCP Family Medicine
DX: R00.0 Tachycardia, unspecified (principal); I10 Essential (primary) hypertension; R74.01 Elevation of levels of liver transaminase levels; E11.9 Type 2 diabetes mellitus without complications; E78.00 Pure hypercholesterolemia, unspecified
CPT/HCPCS: 80053; 93005; 99284; 83735; 84443; 84484; 85025; 93010

== ENCOUNTER 2024-07-23 22:11 | Emergency (ER) | payer OTHER, SELFPAY ==
[2024-07-23] VITALS (20 sets, daily range): BP systolic 115–135; BP diastolic 73–85; PULSE 91–212; RESP 22; TEMP 36.8; O2SAT 94–98
--- NOTE | 2024-07-23 22:00 | RT.EKG_ITS ---
APPROVED REPORT Exam: Resting ECG Reason for Exam: rapid heart rate Patient Location: E HR:178 bpm ECG Measurements Heart Rate 178 AXIS DE 116 P 178 QRSd 85 QRS 84 QT 263 T -69 QTc 454 Conclusion Supraventricular tachycardia...V-rate>(220-age), QRSd<120 Repolarization abnormality, prob rate related...ST dep, T neg, tachycardia appropriate intervals no ST segment or T wave abnormalitites to suggest occlusive MT
--- NOTE | 2024-07-23 22:14 | ED.GENADUL_ITS ---
Discharge Plan Disposition Patient Disposition: Home Condition: Good Discharge Details Clinical Impression: SVT (supraventricular tachycardia), Hypokalemia Primary Care Provider: [facility] ED Provider: Muriel Price Home Meds and New Rx's Prescriptions: New diltiazem HCl [DILT-XR] 120 mg capsule,ext.rel 24h degradable 120 mg PO DAILY Qty: 30 0RF Continued aspirin [Adult Aspirin Regimen] 81 mg tablet,delayed release (DR/EC) 81 mg PO DAILY atorvastatin 40 mg tablet 40 mg PO DAILY lisinopril 10 mg tablet 10 mg PO DAILY Discontinued metoprolol succinate 25 mg tablet extended release 24 hr 25 mg PO DAILY Discharge Instructions Instructions: Supraventricular tachycardia (SVT) Additional Instructions: STOP taking the metoprolol. START taking the diltiazem extended release 120mg once day; take your first home dose on 07/25/24. [facility] cardiology should call you to schedule an appointment. If you do not hear from them early next week, please call them. Call your primary care doctor on Friday to schedule an appointment to followup on your visit here. Your potassium was slightly low; they may want to recheck this. Return to the emergency department if your symptoms return, or for new symptoms including chest pain, shortness of breath, feeling like your are going to pass out, or if you have any other concerns. Stand Alone Forms: Work Release Referrals: [facility] [Primary Care Provider] - Discharge Data Discharge Date/Time-TO BE ENTERED AT DEPARTURE: 07/24/24 00:15 HPI General Mode of arrival: ambulatory . Date/Time Provider Initiated Documentation: 07/23/24 22:12 . Limitations to Documentation: no limitations . Information obtained by: patient and old records reviewed (cardiology note 09/23/23: ) . HPI Narrative: 54yo M with hx HTN, DM, paroxysmal SVT with unsuccessful ablation, presenting for tachycardia. Has had more frequent episodes of SVT at home, at least once a week, which typically respond to home vagal maneuvers. From approximately 0- 1929 had tachycardia and palpations, he did eventually break with vagal maneuvers. Recurred again at 2129 for which he now presents to the ED. Associated dull substernal chest discomfort which is typical of his episodes; denies any pain. No shortness of breath. No medication changes, recent ETOH use, increased caffeine use. Did take mucinex today for nasal congestion. Otherwise in his usual state of health with no fevers, chills, rash, nausea, vomiting, abdominal pain, LE edema, or other concerns. From cardiology note 09/23/23: Mr. Allison and I met after his SVT ablation in May. 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 Ablation was attempted but stymied by difficulty with mapping, patient agitation, time length and so the procedure was stopped. Since then, he has overall done well with no problems per se. He has had a few episodes of SVT that are seconds to minutes, very short lived. This has been tolerable but still somewhat bothersome to him. He takes metoprolol 25 mg daily. Related Data Home Medications ?Medication ?Instructions ?Recorded ?Confirmed lisinopril 10 mg tablet 10 mg PO DAILY 05/21/23 07/23/24 aspirin 81 mg tablet,delayed 81 mg PO DAILY 06/12/23 07/23/24 release (Adult Aspirin Regimen) atorvastatin 40 mg tablet 40 mg PO DAILY 06/12/23 07/23/24 diltiazem HCl 120 mg 120 mg PO DAILY #30 caps 07/23/24 capsule,extended release 24 hr, controlled (DILT-XR) Previous Rx's ?Medication ?Instructions ?Recorded diltiazem HCl 120 mg 120 mg PO DAILY #30 caps 07/23/24 capsule,extended release 24 hr, controlled (DILT-XR) Allergies Allergy/AdvReac Type Severity Reaction Status Date / Time No Known Allergies Allergy Verified 07/21/24 12:00 General YOLI: 2 Review of Systems Narrative: see HPI Exam Narrative Exam Narrative: General: Alert, anxious Head: Normocephalic, atraumatic Neck: Trachea midline, ?Neck supple. Cardiac: ?Tachycardiac, regular. Resp: No respiratory distress. CTAB. Abd: ?Soft, non-distended, nontender Extremities: ?No deformities.? No peripheral edema. Neurologic: GCS 15. ? Moves all extremities freely against gravity Procedures Other Description: Patient placed on Zoll and adenosine brought ot bedside. Valsalva performed by instructed patient to forcefully blow into syringe while sitting upright. Upon completion of this the head of the bed was rapidly lowered to supine and legs were raised to ~80 degrees. Converted successfully to sinus rythym. Medical Decision Making 54yo M with hx HTN, DM, paroxysmal SVT with unsuccessful ablation, presenting for tachycardia. Increasing frequency of palpations/tachycardia at home, now at least once a week, most recently seen in this ED 2 days ago with SVT. Two episodes today, the first lasted about two hours before he was able to break it, the second started about one hour prior to arrival. Feels typical of his prior episodes with associated dull substernal chest discomfort. Did take mucinex for nasal congestion today, otherwise no clear provoking factors. Tachycardiac to >200 on arrival, vital signs otherwise reassuring. EKG SVT, appropriate intervals, diffuse ST depressions consistent with rate-related ischemia. IV access obtained and patient placed on Zoll, adenosine brought to bedside. Performed positional vagal maneuvers and patient converted to NSR, EKG re assuring with no acute ischemic changes. Patient reports feeling much better. Overall not suggestive of acute coronary syndrome; troponin not indicated. Not suggestive of pulmonary embolism. Labs reviewed as below, CBC reassuring with no leukocytosis or anemia, CMP with mild hypokalemia at 3.2 (oral replacement ordered) and Cr of 1.4 unchanged from two days prior, Mg normal, TSH slightly high with normal T4. Given increasing frequency and severity of episodes, consulted [facility] cardiology for potential medication adjustments. Discussed with [facility] cardiology Dr. Tafoya; advised dcing metoprolol and starting diltazem ER 120mg daily which was done. No further ED observation advised. [facility] cards will call Mr. Allison to schedule a followup appointment. On reassessment patient is well appearing with reassuring vital signs. Feels entirely back to normal. Has remained in SR on the monitor with no recurrence of symptoms. HR 70's-90's. Discharged home to followup with cardiology (SVT) and PCP (Cr, hypokalemia). Discharge instructions and return precautions were reviewed with patient who verbalized understanding. All questions were answered and he is in full agreement with the plan. Lab Data Lab results reviewed: Yes I reviewed the patient's lab results. Labs: Laboratory Tests Range/Units 07/23/24 22:19 WBC (4.4-10.8) 10^3/uL 6.46 RBC (4.36-5.78) 10^6/uL 4.86 Hgb (13.5-17.5) g/dL 15.6 Hct (40.0-50.0) % 44.9 MCV (80-95) fL 92 MCH (27.0-33.0) pg 32.1 MCHC (32.0-36.0) % 34.7 RDW (11.8-14.1) % 12.5 Plt Count (130-400) 10^3/uL 258 MPV (8.0-11.0) fL 8.5 Immature Gran % % 0.3 Neutrophils % % 60.2 Lymphocytes % % 26.8 Monocytes % % 9.9 Eosinophils % % 2.3 Basophils % % 0.5 Nucleated RBC % (0.0-0.3) % 0.0 Absolute Neutrophils (1.2-6.7) 10^3/uL 3.89 Absolute Lymphocytes (1.2-3.4) 10^3/uL 1.73 Absolute Monocytes (0.1-0.8) 10^3/uL 0.64 Absolute Eosinophils (0.0-0.7) 10^3/uL 0.15 Absolute Basophils (0.0-0.2) 10^3/uL 0.03 Sodium (136-145) mmol/L 136 Potassium (3.5-5.1) mmol/L 3.2 L Chloride (98-107) mmol/L 99 Carbon Dioxide (21.0-32.0) mmol/L 25.9 Anion Gap (3-11) mmol/L 11.1 H BUN (7-18) mg/dL 11 Creatinine (0.70-1.30) mg/dL 1.4 H Est GFR (CKD-EPI 2020) (mL/min/1.73m2) 58.99 Glucose (74-106) mg/dL 128 H Calcium (8.5-10.1) mg/dL 8.7 Magnesium (1.8-2.4) mg/dL 1.9 Total Bilirubin (0.2-1.0) mg/dL 0.42 AST (15-37) U/L 40 H ALT (16-63) U/L 66 H Alkaline Phosphatase (46-116) U/L 87 Total Protein (6.4-8.2) g/dL 8.1 Albumin (3.4-5.0) g/dL 3.8 TSH (0.36-3.74) uIU/mL 3.85 H Free T4 (0.76-1.46) ng/dL 0.84 Quality:SDOH Health Related Social Needs: No Data to Display PFSH All Active Problems (Updated 07/23/24 @ 23:15 by Muriel Price MD) Hypokalemia (Acute) SVT (supraventricular tachycardia) (Chronic) Transaminitis (Acute) Diabetes mellitus, type II (Acute) Tobacco abuse (Acute) Hypercholesterolemia (Acute) Aortic regurgitation (Acute) Wide-complex tachycardia (Acute) Essential hypertension (Acute) Elevated troponin (Acute) Medical History Left forearm fracture required surgical repair of left forearm from tractor accident Social History Smoking/Tobacco Use Status: Former Tobacco Use Smoking risk assessment performed?: Yes Alcohol Intake: current Alcohol Intake frequency: a few times a week Drug use: Never Substance use type: does not use Housing: house Do you feel safe at home: Yes Do you feel safe in your relationship?: Yes
--- NOTE | 2024-07-23 22:30 | RT.EKG_ITS ---
APPROVED REPORT Exam: Resting ECG Reason for Exam: rapid heart rate Patient Location: E HR:97 bpm ECG Measurements Heart Rate 97 AXIS [place] 159 P 78 QRSd 97 QRS 81 QT 346 T 52 QTc 441 Conclusion Sinus rhythm...normal P axis, V-rate 60- [address] segment or T wave abnormalitites to suggest occlusive OR
[2024-07-23 22:47] LABS: Abs Immature Grans 0.02 10^3/uL (0.0-0.06); Absolute Basophil Count 0.03 10^3/uL (0.0-0.2); Absolute Eosinophil Count 0.15 10^3/uL (0.0-0.7); Absolute Lymphocyte Count 1.73 10^3/uL (1.2-3.4); Absolute Monocyte Count 0.64 10^3/uL (0.1-0.8); Absolute Neutrophil Count 3.89 10^3/uL (1.2-6.7); Basophils % 0.5 %; Eosinophils % 2.3 %; HCT 44.9 % (40.0-50.0); HGB 15.6 g/dL (13.5-17.5); Immature Grans % 0.3 %; Lymphocytes % 26.8 %; MCH 32.1 pg (27.0-33.0); MCHC 34.7 % (32.0-36.0); MCV 92 fL (80-95); MPV 8.5 fL (8.0-11.0); Monocytes % 9.9 %; Neutrophils % 60.2 %; Platelet Count 258 10^3/uL (130-400); RBC 4.86 10^6/uL (4.36-5.78); RDW 12.5 % (11.8-14.1); WBC 6.46 10^3/uL (4.4-10.8)
[2024-07-23 23:04] LABS: ALT 66 U/L (16-63); AST 40 U/L (15-37); Albumin 3.8 g/dL (3.4-5.0); Alkaline Phosphatase 87 U/L (46-116); Anion Gap 11.1 mmol/L (3-11); BUN 11 mg/dL (7-18); Bilirubin, Total 0.42 mg/dL (0.2-1.0); CO2 25.9 mmol/L (21.0-32.0); CREATININE 1.4 mg/dL (0.70-1.30); Calcium 8.7 mg/dL (8.5-10.1); Chloride 99 mmol/L (98-107); Estimated GFR 58.99 (mL/min/1.73m2); Glucose 128 mg/dL (74-106); Magnesium 1.9 mg/dL (1.8-2.4); Potassium 3.2 mmol/L (3.5-5.1); Sodium 136 mmol/L (136-145); Total Protein 8.1 g/dL (6.4-8.2)
[2024-07-23 23:14] LABS: TSH (W/Ref FT4) 3.85 uIU/mL (0.36-3.74)
[2024-07-23] MEDS: Potassium Chloride Liquid 20 MEQ PKT PO (23:28)
[2024-07-23 23:30] LABS: FREE T4 0.84 ng/dL (0.76-1.46)
[2024-07-23] MEDS: dilTIAZem CD 120 MG CAPCR PO (23:33)
[2024-07-23] MEDS: dilTIAZem CD 120 MG CAPCR 240 MG PO (23:33)
== END 2024-07-24 00:15 | disposition home or self-care (01) ==
PROVIDERS: Emergency Provider Student in an Organized Health Care Education/Training Program; PCP Family Medicine
DX: E87.6 Hypokalemia (principal); I47.10 Supraventricular tachycardia, unspecified
CPT/HCPCS: 36415; 80053; 93005; 99284; 83735; 84439; 84443; 85025; 93010

== ENCOUNTER 2024-12-29 13:44 | Outpatient (CLI) | payer OTHER, SELFPAY ==
--- NOTE | 2024-12-29 13:30 | RT.EKG_ITS ---
APPROVED REPORT Exam: Resting ECG Reason for Exam: svt Patient Location: O HR:108 bpm ECG Measurements Heart Rate 108 AXIS [place] 150 P 62 QRSd 105 QRS 107 QT 347 T 18 QTc 465 Conclusion Sinus tachycardia...rate> 99 Atrial premature complex...SV complex w/ short R-R interval Right axis deviation...QRS axis (100,644)
== END 2024-12-29 13:45 | disposition home or self-care (01) ==
LOC: DI.CARD 13:45
PROVIDERS: PCP Family Medicine; Visit Provider Internal Medicine Cardiovascular Disease
DX: I47.10 Supraventricular tachycardia, unspecified (principal)
CPT/HCPCS: 93010